=== PATIENT | female | born 1995 | race African-American/Black ===

== ENCOUNTER 2016-12-29 04:19 | Emergency (ER) | payer SELFPAY ==
[~2016-12-29] VITALS: Ht 157.5 cm; Wt 58.1 kg
[2016-12-29 04:31] VITALS: BP 122/59
--- NOTE | 2016-12-29 04:44 | PHYS DOC ---
Past History Past Medical History: No Pertinent History Past Surgical History: No Surgical History Smoking: Non-smoker Alcohol Use: None Drug Use: None Adult General Chief Complaint Chief Complaint: LACERATION/AVULSION [facility] HPI This patient is a pleasant 21-year-old female who was waking up from sleeping tonight to walk to the restroom at [place] lost her balance slipped and struck her head on the edge of a chair. There is no loss of consciousness, she has no pain is localized bleeding from the wound. She denies any headache, focal neurologic deficit, neck pain, hearing loss epistaxis or other symptoms. Patient 's tetanus shot is up-to-date and bleeding is controlled controlled with direct pressure. She admits there is no abuse at home, she is not received any trauma from another person. Review of Systems Review of Systems Constitutional: Denies fever or chills [] Eyes: Denies change in visual acuity, redness, or eye pain [] HENT: Denies nasal congestion or sore throat [] Respiratory: Denies cough or shortness of breath [] Cardiovascular: No additional information not addressed in HPI [] GI: Denies abdominal pain, nausea, vomiting, bloody stools or diarrhea [] Musculoskeletal: Denies back pain or joint pain [] Integument: Denies rash or skin lesions [] Neurologic: Denies headache, focal weakness or sensory changes [] Allergies Allergies Allergies Coded Allergies Type Severity Reaction Last Updated Verified No Known Drug Allergies 12/29/16 No Physical Exam Physical Exam Vital signs recorded on the chart within normal limits Constitutional: Well developed, well nourished, no acute distress, non-toxic appearance. [] HENT: Normocephalic, small well approximated 1.6 cm laceration over the left mid eyebrow no foreign body no active bleeding, bilateral external ears normal, oropharynx moist, no oral exudates, nose normal. [] Eyes: PERRLA, EOMI, conjunctiva normal, no discharge. [] Neck: Normal range of motion, no tenderness, Cardiovascular:Heart rate regular rhythm, no murmur [] Lungs & Thorax: Bilateral breath sounds clear to auscultation [] Skin: Warm, dry, no erythema, no rash. [] Back: No tenderness, Extremities: No tenderness, no cyanosis, no clubbing, ROM intact, no edema. [] Neurologic: Alert and oriented X 3, normal motor function, normal sensory function, no focal deficits noted. [] Psychologic: Affect normal, judgement normal, mood normal. [] Current Patient Data Vital Signs Vital Signs Date Time Temp Pulse Resp B/P (MAP) Pulse Ox O2 Delivery O2 Flow Rate FiO2 12/29/16 04:31 98.6 62 20 99 Room Air EKG EKG [] Radiology/Procedures Radiology/Procedures [] Course & Med Decision Making Course & Med Decision Making Pertinent Labs and Imaging studies reviewed. (See chart for details) he was a wall approximately small laceration over the left eyebrow and will need repair. Laceration repair consent verbal: Patient will have the wound prepped with chlorhexidine and manual cleaning. Patient will then have the wound infiltrated with 2-3 mL of 1% lidocaine with epinephrine. Patient will have the wound closed with 5-0 polypropylene interrupted sutures in rapid succession. Patient had 7 sutures placed she tolerated the procedure well. No active bleeding no competition occurred. Patient and I discussed wound care and suture removal process she will follow up here in 7 days for the sutures removed.[] Dragon Disclaimer Dragon Disclaimer This chart was dictated in whole or in part using Voice Recognition software in a busy, high-work load, and often noisy Emergency Department environment. It may contain unintended and wholly unrecognized errors or omissions. Departure Departure: Impression: Primary Impression: Head injury Additional Impression: Facial laceration Disposition: 01 HOME, SELF-CARE Condition: IMPROVED Referrals: PCP,NO (PCP) Patient Instructions: Facial Laceration, Laceration Care, Adult Additional Instructions: My discharge plan Follow up: In addition patient is asked to followup with their primary doctor, within a week for followup examination and to address patient's ongoing medical conditions. Because patient does not have a regular medical doctor, a local physician Resource Sheet will be provided to establish care primary care. Patient is advised that in the Emergency Department primary complaints are addressed and only in light of known signs and symptoms. Patient should return immediately to the emergency department if new signs and symptoms develop or patient's condition worsens in any way. At time of discharge patient was in stable condition and had verbalized understanding of the discharge instructions. This follow-up here primary care doctor or here for suture removal in 7 days. Please return for any signs of infection, increasing headache with focal neurologic deficit. Or if you have any Questions or concerns. Scripts Bacitracin (BACITRACIN) 3.5 Gm Oint...g. 1 ABHISHEK OS TID, #3.5 GM Prov: JIN RUIZ MD 12/29/16 Problem Qualifiers JIN RUIZ MD Dec 29, 2016 04:44
[2016-12-29] MEDS ORDERED: BACI3.5O8 OS (04:46)
[2016-12-29] MEDS ORDERED: LIDOCAINE 1% Multi-Dose 20 ML VIAL. ONE (04:48)
[2016-12-29] MEDS ORDERED: LIDOCAINE 1%/EPI 1:100,000 20 ML VIAL. IJ ONE (05:00)
== END 2016-12-29 05:30 | disposition home or self-care (01) ==
LOC: ER 04:19
DX: S01.81XA Laceration without foreign body of other part of head, initial encounter (principal); S09.90XA Unspecified injury of head, initial encounter; W01.190A Fall on same level from slipping, tripping and stumbling with subsequent striking against furniture, initial encounter; Y93.89 Activity, other specified; Y92.89 Other specified places as the place of occurrence of the external cause; Y99.8 Other external cause status
CPT/HCPCS: 12011; 81025; 99283-25; 99284-25

== ENCOUNTER 2017-01-06 11:57 | Emergency (ER) | payer SELFPAY ==
[~2017-01-06] VITALS: Ht 157.5 cm; Wt 58.1 kg
[2017-01-06 11:57] VITALS: BP 117/71
[~2017-01-06 11:57] MED LIST: BACI3.5O8 OS
--- NOTE | 2017-01-06 12:01 | PHYS DOC ---
Past History Past Medical History: No Pertinent History Past Surgical History: No Surgical History Smoking: Non-smoker Alcohol Use: None Drug Use: None Adult General Chief Complaint Chief Complaint: suture removal HPI HPI Patient is a 21 year old female who presents or suture removal. She had 7 sutures placed above her left eye 1 week ago. She also had her tetanus updated at time. She states it she's here to have these removed this time. She denies any soreness or tenderness or redness around the wound. She thinks up to the stitches might have fallen out earlier in the week. Review of Systems Review of Systems Constitutional: Denies fever or chills [] Eyes: Denies change in visual acuity, redness, or eye pain [] HENT: Denies nasal congestion or sore throat [] Respiratory: Denies cough or shortness of breath [] Cardiovascular: No additional information not addressed in HPI [] GI: Denies abdominal pain, nausea, vomiting, bloody stools or diarrhea [] : Denies dysuria or hematuria [] Musculoskeletal: Denies back pain or joint pain [] Integument: Denies rash or skin lesions [] Neurologic: Denies headache, focal weakness or sensory changes [] Endocrine: Denies polyuria or polydipsia [] Allergies Allergies Allergies Coded Allergies Type Severity Reaction Last Updated Verified No Known Drug Allergies 12/29/16 No Physical Exam Physical Exam Constitutional: Well developed, well nourished, no acute distress, non-toxic appearance. [] HENT: Normocephalic, atraumatic, bilateral external ears normal, oropharynx moist, no oral exudates, nose normal. [] Eyes: PERRLA, EOMI, conjunctiva normal, no discharge. [] Neck: Normal range of motion, no tenderness, supple, no stridor. [] Cardiovascular:Heart rate regular rhythm, no murmur [] Lungs & Thorax: Bilateral breath sounds clear to auscultation [] Abdomen: Bowel sounds normal, soft, no tenderness, no masses, no pulsatile masses. [] Skin: Warm, dry, no erythema, no rash. 5 sutures above the left eye with appropriate healing. No erythema noted Back: No tenderness, no CVA tenderness. [] Extremities: No tenderness, no cyanosis, no clubbing, ROM intact, no edema. [] Neurologic: Alert and oriented X 3, normal motor function, normal sensory function, no focal deficits noted. [] Psychologic: Affect normal, judgement normal, mood normal. [] EKG EKG [] Radiology/Procedures Radiology/Procedures [] Impressions: Suture removal Course & Med Decision Making Course & Med Decision Making Pertinent Labs and Imaging studies reviewed. (See chart for details) We only found 5 sutures, the nurse removed all 5 of these. These were removed by Olga the nurse. Patient tolerated procedure well, return precautions given. Patient's agreeable plan being discharged in stable condition. Dragon Disclaimer Dragon Disclaimer This chart was dictated in whole or in part using Voice Recognition software in a busy, high-work load, and often noisy Emergency Department environment. It may contain unintended and wholly unrecognized errors or omissions. Departure Departure: Impression: Primary Impression: Visit for suture removal Disposition: 01 HOME, SELF-CARE Condition: STABLE Referrals: PCP,NO (PCP) Patient Instructions: Suture Removal Additional Instructions: We removed all the sutures we could find from your wound that you had placed a week ago. You can use triple anabolic ointment on the area to 3 times a day for the next 3-4 days to make sure it heals completely. Please avoid direct sunlight and you can use sunscreen on the wound to help reduce the chances of scar. If you see any signs of infection, redness, fevers, increasing pain please return back to ER. OTF COLEMAN MD Jan 06, 2017 12:01
== END 2017-01-06 12:15 | disposition home or self-care (01) ==
LOC: ER 11:57
DX: S01.112D Laceration without foreign body of left eyelid and periocular area, subsequent encounter (principal); X58.XXXD Exposure to other specified factors, subsequent encounter; Y99.8 Other external cause status; Y92.89 Other specified places as the place of occurrence of the external cause
CPT/HCPCS: 99281